=== PATIENT | male | born 1980 | race American Indian/Alaskan Native ===

== ENCOUNTER 2021-05-06 13:22 | Emergency (ER) | payer SELFPAY ==
[2021-05-06 13:26] VITALS: BP 138/78
--- NOTE | 2021-05-06 13:26 | Emergency Department Report ---
- General Stated Complaint: BLOOD IN SPUTUM Time Seen by Provider: 05/06/21 13:25 - History of Present Illness Initial Comments: Patient presents by ambulance secondary to hemoptysis. He was being transferred from a psychiatric facility to another psychiatric facility. He had reported that he was coughing up blood. The receiving psychiatric facility told paramedics to "do not even bother because we are on divert." EMS came here. Patient states that he has been coughing up a bloody tinged sputum for the last day and a half. There is no fevers or chills. He has no hematuria, hematochezia, or melena. He is not anticoagulated. He states that he had a episode of epistaxis prior to onset of the symptoms. - Related Data Previous Rx's Medication Instructions Recorded Last Taken Type Albuterol Sulfate [Proventil Hfa] 2 puff IH 4XD #1 inh 05/06/21 Unknown Rx Benzonatate [Tessalon Perles] 100 mg PO Q8HR #21 cap 05/06/21 Unknown Rx Allergies Allergy/AdvReac Type Severity Reaction Status Date / Time No Known Allergies Allergy Verified 05/06/21 13:26 ED Review of Systems ROS: Stated complaint: BLOOD IN SPUTUM Other details as noted in HPI Comment: All other systems reviewed and negative Constitutional: denies: fever Eyes: denies: vision change ENT: as per HPI Respiratory: see HPI Cardiovascular: denies: chest pain Endocrine: denies: unexplained weight loss Gastrointestinal: denies: hematemesis Genitourinary: denies: hematuria Musculoskeletal: denies: back pain Skin: denies: rash Neurological: denies: headache Hematological/Lymphatic: denies: easy bruising ED Past Medical Hx - Past Medical History Additional medical history: Psychiatric illness - Family History Family history: other (Negative for coagulopathy) - Medications Home Medications: Home Medications Medication Instructions Recorded Confirmed Last Taken Type Albuterol Sulfate [Proventil Hfa] 2 puff IH 4XD #1 inh 05/06/21 Unknown Rx Benzonatate [Tessalon Perles] 100 mg PO Q8HR #21 cap 05/06/21 Unknown Rx ED Physical Exam - General Limitations: No Limitations, Other (Pulse ox noted and normal) General appearance: alert, in no apparent distress - Head Head exam: Present: atraumatic, normocephalic, normal inspection - Eye Eye exam: Present: normal appearance, EOMI - ENT ENT exam: Present: normal orophraynx, normal external ear exam - Neck Neck exam: Present: normal inspection. Absent: meningismus - Respiratory Respiratory exam: Present: normal lung sounds bilaterally. Absent: respiratory distress - Cardiovascular Cardiovascular Exam: Present: regular rate, normal rhythm - Extremities Exam Extremities exam: Present: normal capillary refill - Back Exam Back exam: Absent: CVA tenderness (R), CVA tenderness (L) - Neurological Exam Neurological exam: Present: alert, oriented X3, CN II-XII intact. Absent: motor sensory deficit - Psychiatric Psychiatric exam: Present: normal affect, normal mood - Skin Skin exam: Present: warm, dry ED Course Vital Signs 05/06/21 13:24 Temperature 98.3 F Pulse Rate 80 Blood Pressure 138/78 [Left] O2 Sat by Pulse 100 Oximetry - Reevaluation(s) Reevaluation #1: 05/06/21 12:55 EMS was met. Chest x-ray was ordered. Reevaluation #2: 05/06/21 14:29 Chest x-ray was noted. Patient was discharged. ED Medical Decision Making - Radiology Data Radiology results: report reviewed - Medical Decision Making Patient presents during transport from 1 psychiatric facility to another secondary to hemoptysis. Patient has blood-tinged but clear sputum here. He is not anticoagulated. There is no adventitious breath sounds suggestive of pneumonia. Patient does not have radiographic evidence of pneumonia. He did report having a nosebleed prior to arrival. He has some dried blood in the nasopharynx and posterior pharynx. I am not concerned for PE. Again, he has not anticoagulated. There was no radiographic evidence of pneumothorax. He was treated symptomatically and referred for outpatient follow-up. Critical Care Time: No Critical care attestation.: If time is entered above; I have spent that time in minutes in the direct care of this critically ill patient, excluding procedure time. ED Disposition Clinical Impression: Hemoptysis, Viral URI Disposition: [address] [place] [address] Is pt being admited?: No Condition: Stable Instructions: Viral Respiratory Infection, Omif-Ne-Hjik, Hemoptysis Additional Instructions: Drink plenty water. Return for problems. Follow-up with a regular doctor for recheck. Take the medications as prescribed. Prescriptions: Albuterol Sulfate [Proventil Hfa] 2 puff IH 4XD #1 inh Benzonatate [Tessalon Perles] 100 mg PO Q8HR #21 cap Referrals: PRIMARY CARE, [Primary Care Provider] - 3-5 Days NIKHIL CARROLL MD [Staff Physician] - 3-5 Days
--- NOTE | 2021-05-06 14:27 | XRay Report ---
CHEST 2 VIEWS INDICATION: hemoptysis. COMPARISON: none FINDINGS: Support devices: None. Heart: Within normal limits. Lungs/pleura: No acute air space or interstitial disease. No pneumothorax. Additional findings: None. IMPRESSION: No acute findings. Signer Name: Ki Hernandez Jr, MD Signed: 05/06/2021 2:22 PM Workstation Name: [id number]
== END 2021-05-06 15:33 ==
LOC: ED 13:22
DX: J06.9 Acute upper respiratory infection, unspecified (principal); R04.2 Hemoptysis; B97.89 Other viral agents as the cause of diseases classified elsewhere
CPT/HCPCS: 71046; 99285

== ENCOUNTER 2021-05-25 20:38 | Emergency (ER) | payer SELFPAY ==
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
--- NOTE | 2021-05-25 22:06 | Cat Scan Report ---
NONENHANCED CT SCAN OF THE HEAD: INDICATION / CLINICAL INFORMATION: 40 years Male; Headache. TECHNIQUE: Routine CT head without contrast. All CT scans at this location are performed using CT dos e reduction for ALARA by means of automated exposure control. COMPARISON: None. FINDINGS: BRAIN / INTRACRANIAL CONTENTS: No acute hemorrhage, mass effect, midline shift, hydrocephalus, or acu te, large territorial infarct. No chronic infarct or focal atrophy. Normal brain volume and ventricul ar/sulcal size for age. No significant white matter abnormality. CRANIOCERVICAL JUNCTION: No significant abnormality. ORBITS: No significant abnormality of visualized orbits. SINUSES / MASTOIDS: No significant abnormality of the visualized paranasal sinuses or mastoid air salud ls. ADDITIONAL FINDINGS: None. IMPRESSION: No focal parenchymal lesion Signer Name: Ramesh Watkins MD Signed: 05/25/2021 10:02 PM Workstation Name: [id number]
[2021-05-25 22:17] LABS: BUN/Creatinine Ratio 12; Blood Urea Nitrogen 13 mg/dL (9-20); Calcium 8.9 mg/dL (8.4-10.2); Hemolysis Index 8
[2021-05-25 22:36] LABS: Basophils % (Auto) 0.2 % (0.0-1.8); Eosinophils # (Auto) 0.2 K/mm3 (0.0-0.4); Eosinophils % (Auto) 1.8 % (0.0-4.3); Hematocrit 41.6 % (35.5-45.6); Hemoglobin 13.5 gm/dl (11.8-15.2); Lymphocytes # (Auto) 1.7 K/mm3 (1.2-5.4); Lymphocytes % (Auto) 15.1 % (13.4-35.0); Mean Corpuscular HGB Conc 32 % (32-34); Mean Corpuscular Volume 87 fl (84-94); Monocytes # (Auto) 0.7 K/mm3 (0.0-0.8); Monocytes % (Auto) 6.3 % (0.0-7.3); Platelet Count 284 K/mm3 (140-440); Red Blood Count 4.75 M/mm3 (3.65-5.03); Red Cell Distribution Width 15.2 % (13.2-15.2)
[2021-05-25] MEDS ORDERED: ALPRAZolam 1 MG TAB PO ONE (22:37)
[2021-05-25 22:39] LABS: Bilirubin,Urine NEG (Negative); Blood,Urine SM (Negative); Color,Urine Amber (Yellow); RBC,Urine < 1.0 /HPF (0.0-6.0); Urobilinogen,Urine < 2.0 mg/dL (<2.0)
[2021-05-25 22:48] LABS: Amphetamine Screen,Urine Negative; Benzodiazepines Screen,Urine Negative; Cannabinoid Screen,Urine Negative; Cocaine Screen,Urine Negative; Methadone Screen,Urine Negative; Opiate Screen,Urine Negative
[2021-05-25 22:52] LABS: WBC,Urine < 1.0 /HPF (0.0-6.0)
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
--- NOTE | 2021-05-26 11:18 | Emergency Department Report ---
Blank Doc - Documentation Documentation: Chart reviewed 40-year-old male with bipolar schizophrenia currently on 1013 awaiting placement. No events overnight as per nurses note.
[2021-05-26] MEDS: FLUoxetine 10 MG TAB PO SCH (13:31)
[2021-05-26] MEDS: QUEtiapine 25 MG TAB PO SCH ×2 (13:31→22:44)
[2021-05-26] MEDS ORDERED: ACETAMINOPHEN 325 MG TAB PO ONE (17:34)
[2021-05-26 19:14] LABS: Basophils # (Auto) 0.1 K/mm3 (0.0-0.1); Basophils % (Auto) 0.6 % (0.0-1.8); Eosinophils # (Auto) 0.6 K/mm3 (0.0-0.4); Eosinophils % (Auto) 6.5 % (0.0-4.3); Hematocrit 43.1 % (35.5-45.6); Hemoglobin 14.1 gm/dl (11.8-15.2); Lymphocytes # (Auto) 2.8 K/mm3 (1.2-5.4); Mean Corpuscular HGB Conc 33 % (32-34); Mean Corpuscular Volume 88 fl (84-94); Monocytes # (Auto) 0.9 K/mm3 (0.0-0.8); Monocytes % (Auto) 10.1 % (0.0-7.3); Platelet Count 285 K/mm3 (140-440); Red Blood Count 4.89 M/mm3 (3.65-5.03); Red Cell Distribution Width 15.4 % (13.2-15.2)
[2021-05-26] MEDS ORDERED: traZODone 50 MG TAB PO SCH (22:00)
[2021-05-27] MEDS: FLUoxetine 10 MG TAB PO SCH (09:38)
[2021-05-27] MEDS: QUEtiapine 25 MG TAB PO SCH (09:39)
--- NOTE | 2021-05-27 10:56 | Progress Note ---
Subjective - Reason for Consult Consult date: 05/27/21 Reason for consult: SI - Chief Complaint Chief complaint: The patient still endorses SI with a plan to overdose on seroquel. He says he's seeing flashes of light, but states he's unsure if it's from playing football and having several head injuries. He says "I'm going through a lot of stuff and having problems." REVIEW OF SYSTEMS Constitutional: Negative for weight loss ENT: Negative for stridor Respiratory: Negative for cough or hemoptysis All other systems reviewed and are negative MENTAL STATUS EXAMINATION General Appearance and Behavior: Age appropriate, good hygiene, wearing appropriate clothes. calm, cooperative Cooperation: Cooperative Psychomotor Behavior: Psychomotor normal Mood: depressed Affect and affective range: congruent with stated mood Thought Process: circumstantial Thought Content: Hallucinations, SI Speech: normal tone and pace Suicidal Ideation: Yes Homicidal Ideation: Denies Hallucinations: Visual Delusions: Denies Impulse Control: Limited Insight and Judgment: Limited insight and fair judgment Memory: Limited Attention: distracted Orientation: a/o x 3 Assessment (1) Schizophrenia Current Visit: Yes Status: Acute Treatment Plan 1013 Seroquel 50mg po BID Prozac 10mg po daily Trazodone 50mg po qhs Medical: per primary Disposition: Recommend acute psychiatric inpatient treatment Will follow. Thanks Case staffed with Dr. Sorensen. Mental Status Exam - Vital signs Last Vital Signs Temp 98.8 F 05/26/21 22:54 Pulse 91 H 05/26/21 22:54 Resp 18 05/27/21 05:39 BP 112/77 05/26/21 22:54 Pulse Ox 97 05/27/21 10:46
[2021-05-27 12:45] VITALS: BP 129/89
[2021-05-27] MEDS ORDERED: IBUPROFEN 400 MG TAB PO PRN (12:52)
[2021-05-27] MEDS ORDERED: LORazepam 2 MG/ML VIAL IM PRN (12:52)
[2021-05-27] MEDS ORDERED: ONDANSETRON 4 MG ODT TAB PO PRN (12:52)
[2021-05-27] MEDS ORDERED: diphenhydrAMINE 25 MG CAP PO PRN (12:52)
--- NOTE | 2021-05-27 12:52 | Event Note ---
Date: 05/27/21 The patient was evaluated in the emergency department for symptoms described in the history of present illness. He/she was evaluated in the context of the global COVID-19 pandemic, which necessitated consideration that the patient might be at risk for infection with the virus that causes COVID-19. Institutional protocols and algorithms that pertain to the evaluation of patients at risk for COVID-19 are in a state of rapid change based on information released by regulatory bodies including the CDC and federal and state organizations. These policies and algorithms were followed during the patient's care in the emergency department. Please note that these policies, procedures and recommendations changed on a rapid basis. Laboratory studies, vital signs, nursing documentation, ER documentation, and psychiatric documentation are reviewed and appreciated. Nursing team reports no acute events this morning or concerns. The patient is awake and in no acute distress. Nursing team reports no acute issues. The patient was deemed medically suitable for psychiatric disposition and placement during his initial ER evaluation. The patient continues to remain medically suitable for psychiatric placement and disposition. He is currently pending psychiatric placement.
[2021-05-27] MEDS ORDERED: ALBUTEROL 2.5 MG/3 ML NEBU IH PRN (14:00)
[2021-05-27] MEDS ORDERED: ALBUTEROL 8.5 GM MDI INHALATION IH SCH (14:00)
== END 2021-05-27 13:00 ==
LOC: ED 20:38
DX: R45.851 Suicidal ideations (principal); R45.850 Homicidal ideations; F31.9 Bipolar disorder, unspecified; J45.909 Unspecified asthma, uncomplicated; Z20.822 Contact with and (suspected) exposure to COVID-19
CPT/HCPCS: 36415; 70450; 80048; 80307; 81001; 84443; 85025; 99285; U0003; 80320; 99284; G0480